=== PATIENT | male | born 1960 | race Caucasian/White ===

== ENCOUNTER 2017-10-17 11:47 | Emergency (ER) | payer MEDICARE, MEDICAID ==
[~2017-10-17] VITALS: Ht 175.3 cm; Wt 72.6 kg
[~2017-10-17 11:47] MED LIST: ADULT LOW DOSE81 MG; AMLODIPINE BESY10 MG PO; ARTIFICIAL TEAR15 M1 OPHTHALMIC; ASPIR 8181 M1 PO; ATENOLOL 100MG100 M2; BENADRYL25 MG PO; BENTYL 20 MG TA20 M1 PO; BENTYL20 MG PO; CARAFATE 1 GM TA1 G1 PO; CARDIZEM60 MG PO; CARVEDILOL12.5 MG PO; CIPROFLOXACIN500 M1 PO; CLEOCIN HCL150 MG PO; COREG6.25 MG PO; DOLOPHINE HCL10 MG PO; DOXYCYCLINE 10100 MG PO; EFFEXOR XR150 MG PO; ENDOCET; FLEXERIL PO; HYDROCHLOROTHIA25 M1 PO; HYDROCHLOROTHIA25 M2 PO; HYDROCODON-ACE1 EAC7 PO; HYDROCODON-ACE1 EAC8 PO; LASIX 20 MG TAB20 MG PO; LEVAQUIN 500 M500 M2 PO; LISINOPRIL10 MG PO; LISINOPRIL20 MG PO; LISINOPRIL40 MG; LISINOPRIL40 MG PO; LOPRESSOR 12.12.5 MG PO; LOPRESSOR25 PO; LUBRICANT EYE D15 ML OPHTHALMIC; METHADONE; METHADONE HCL 110 MG PO; METHADONE HCL5 MG PO; METHADOSE10 MG PO; MIRALAX17 GM PO; MOBIC7.5 M1 PO; MS CONTIN 60 MG60 M1; NAPROXEN 375 M375 M1 PO; NEURONTIN 400400 M1 PO; NEURONTIN 400M400 M2 PO; NICOTINE TRANSD14 M1 TRANSDERM; NORCO 5-325 TA1 EACH PO; NORVASC10 MG PO; OMEPRAZOLE20 M1 PO; OMEPRAZOLE20 M2 PO; OMEPRAZOLE40 MG PO; OXYCODONE HCL 55 MG PO; OXYCODONE HCL5 M1 PO; PEPCID40 MG PO; PERCOCET 10-321 EACH PO; PERCOCET 5-3251 EACH; PERCOCET 5-3251 EACH PO; PERCOCET 7.5-31 EACH PO; PERCOCET PO; PERI-COLACE TA1 EACH PO; POTASSIUM20 PO; PRED FORTE 1% EY5 M1 OPHTHALMIC; PREDNISONE 20 M20 MG PO; PRILOSEC 20 MG20 MG PO; PROTONIX40 M1 PO; PROTONIX40 M2 PO; PROTONIX40 MG PO; REMERON15 MG PO; SENNA-S TABLET1 EACH PO; SIMVASTATIN40 MG PO; SLEEPING PILL; TOPROL XL100 MG PO; TOPROL XL25 MG; TRAMADOL 50 MG50 MG PO; TRAMADOL HCL50 MG PO; TRAZODONE HCL50 MG; TRAZODONE HCL50 MG PO; ULTRAM 50MG TAB50 MG PO; VALPROIC ACID250 MG PO; ZOCOR40 MG PO; ZOFRAN ODT4 MG PO; ZPAK PO
[2017-10-17 12:04] VITALS: BP 176/105
[2017-10-17] MEDS ORDERED: NEURONTIN 300M300 M2 PO (12:06)
[2017-10-17] MEDS ORDERED: HYDROCORTISONE120 M1 TOP (12:19)
== END 2017-10-17 12:25 | disposition home or self-care (01) ==
LOC: M.ERS 11:47
DX: L30.9 Dermatitis, unspecified (principal); F17.220 Nicotine dependence, chewing tobacco, uncomplicated; I10 Essential (primary) hypertension

== ENCOUNTER 2017-11-11 11:28 | Emergency (ER) | payer MEDICARE, MEDICAID ==
[~2017-11-11] VITALS: Ht 182.9 cm; Wt 79.4 kg
[~2017-11-11 11:28] MED LIST changes: +HYDROCORTISONE120 M1 TOP; +NEURONTIN 300M300 M2 PO
[2017-11-11 11:44] LABS: ABSOLUTE BASOPHILS 0.1 thou/uL (0.0-0.2); ABSOLUTE EOSINOPHILS 0.1 thou/uL (0.0-0.7); ABSOLUTE LYMPHOCYTES 1.2 thou/uL (0.8-5.3); ABSOLUTE MONOCYTES 0.4 thou/uL (0.0-1.2); ABSOLUTE NEUTROPHILS 9.7 thou/uL (1.6-8.1); BASOPHILS 0.5 %; HEMATOCRIT 43.5 % (42.0-52.0); HEMOGLOBIN 13.6 gm/dL (14.0-18.0); LYMPHOCYTES 10.8 %; MCH 25.6 pg (26.0-34.0); MCHC 31.2 g/dL (28.0-37.0); MCV 82.1 fL (80.0-100.0); MONOCYTES 3.7 %; NUCLEATED RBCS 0 /100WBC; PLATELET COUNT* 347 thou/uL (150-400); RDW-CV 26.9 % (10.5-14.5); WBC 11.5 thou/uL (4.0-11.0)
[2017-11-11 11:55] LABS: ANION GAP 10 mmol/L (7-16); BUN 10 mg/dL (7-18); CALCIUM 8.5 mg/dL (8.5-10.1); CHLORIDE 109 mmol/L (98-107); CO2 24 mmol/L (21-32); GLUCOSE 104 mg/dL (70-99); POTASSIUM 3.6 mmol/L (3.5-5.1); SODIUM 143 mmol/L (136-145)
[2017-11-11 11:56] LABS: APTT 28.9 Seconds (25.0-31.3); INR 1.1; PROTIME 10.4 Seconds (9.20-11.50)
[2017-11-11 12:20] LABS: ALBUMIN 3.6 g/dL (3.4-5.0); ALKALINE PHOSPHATASE 97 U/L (46-116); LIPASE 103 U/L (73-393); MAGNESIUM 1.6 mg/dL (1.8-2.4); NT-PRO BRAIN NAT PEPTIDE 109 pg/mL (<300); SGOT 15 U/L (15-37); SGPT 22 U/L (30-65); TOTAL BILIRUBIN 0.3 mg/dL (<0.1-1.0); TROPONIN-I LEVEL <0.06 ng/mL (<0.06)
[2017-11-11] MEDS ORDERED: ZOFRAN ODT4 MG SUBLING (12:33)
[2017-11-11 12:36] LABS: ANISOCYTOSIS 3+; OVALOCYTES 1+; TEARDROPS 2+
[2017-11-11 12:40] VITALS: BP 160/109
--- NOTE | 2017-11-11 16:27 | EKG ---
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: : 1960 Requested By: Anthony Borjas Order Number: [id number] MD: Yusuf Cannon Measurements Intervals [place] Rate: 103 P: 33 MD: 160 QRS: 99 QRSD: 171 T: 10 QT: 365 QTc: 478 Interpretive Statements Sinus tachycardia Left atrial enlargement RBBB and LPFB Baseline wander in lead(s) V2 Compared to ECG 05/25/2017 10:42:19 No significant changes Electronically Signed On 11-11-2017 16:27:33 LOADER MACHINE by Yusuf Cannon [email or web address] <ELECTRONICALLY SIGNED> By: Yusuf Cannon MD, [facility] 11/11/17 1627 1133 32 Yusuf Cannon MD, [facility] /EPI
== END 2017-11-11 12:41 | disposition home or self-care (01) ==
LOC: M.ERS 11:28
PROVIDERS: Family Medicine
DX: R07.9 Chest pain, unspecified (principal)

== ENCOUNTER 2017-11-18 13:13 | Inpatient (IN) | payer MEDICARE, MEDICAID ==
[~2017-11-18] VITALS: Ht 182.9 cm; Wt 79.4 kg
--- NOTE | ~2017-11-18 | PROC ---
[address] [address] PROCEDURE REPORT Name: BRADEN HUTCHISON Room: [address] IN M.R.#: [id number] Admission: 11/18/17 Attend Phys: Joshua Quintana Discharge: Date of : 64 Report #: [id number] THIS REPORT FOR: //name// For GI report, please see the Provation report in Perceptive 7 content. By: 0656Medical Records Staff JOSELINE /BRADLEY
[~2017-11-18 13:13] MED LIST changes: +ZOFRAN ODT4 MG SUBLING
[2017-11-18 13:20] VITALS: BP 125/85
[2017-11-18 14:37] LABS: ABSOLUTE BASOPHILS 0.1 thou/uL (0.0-0.2); ABSOLUTE EOSINOPHILS 0.3 thou/uL (0.0-0.7); ABSOLUTE LYMPHOCYTES 2.1 thou/uL (0.8-5.3); ABSOLUTE MONOCYTES 0.6 thou/uL (0.0-1.2); ABSOLUTE NEUTROPHILS 4.8 thou/uL (1.6-8.1); BASOPHILS 0.9 %; HEMATOCRIT 26.3 % (42.0-52.0); HEMOGLOBIN 8.4 gm/dL (14.0-18.0); LYMPHOCYTES 26.6 %; MCH 25.8 pg (26.0-34.0); MCHC 31.9 g/dL (28.0-37.0); MCV 80.8 fL (80.0-100.0); MONOCYTES 7.3 %; MPV 8.2 fl. (7.2-11.1); NUCLEATED RBCS 0 /100WBC; PLATELET COUNT* 320 thou/uL (150-400); POLYS 61.2 %; RBC 3.26 mil/uL (4.50-6.00); RDW-CV 25.1 % (10.5-14.5); WBC 7.8 thou/uL (4.0-11.0)
[2017-11-18 14:42] LABS: ANION GAP 10 mmol/L (7-16); BUN 52 mg/dL (7-18); CHLORIDE 110 mmol/L (98-107); CO2 27 mmol/L (21-32); CREATININE 1.1 mg/dL (0.6-1.3); GLUCOSE 91 mg/dL (70-99); POTASSIUM 3.1 mmol/L (3.5-5.1); SODIUM 147 mmol/L (136-145)
[2017-11-18 14:53] LABS: ALBUMIN 2.9 g/dL (3.4-5.0); ALKALINE PHOSPHATASE 58 U/L (46-116); LIPASE 211 U/L (73-393); NT-PRO BRAIN NAT PEPTIDE 64 pg/mL (<300); SGOT 7 U/L (15-37); SGPT 11 U/L (30-65); TOTAL BILIRUBIN 0.4 mg/dL (<0.1-1.0); TOTAL PROTEIN 5.3 g/dL (6.4-8.2); TROPONIN-I LEVEL <0.06 ng/mL (<0.06)
[2017-11-18 15:10] LABS: MICROCYTES 2+
[2017-11-18 15:13] LABS: ANISOCYTOSIS 2+; HYPOCHROMASIA 2+; LARGE PLATELETS FEW; OVALOCYTES 1+; PLATELET ESTIMATE ADEQUATE
--- NOTE | 2017-11-18 16:34 | EKG ---
[place] [address] ELECTROCARDIOGRAM REPORT Name: BRADEN HUTHCISON Room: [place] [address] ADM IN .R.#: [id number] Admission: 11/18/17 Attend Phys: Joshua Quintana Discharge: Date of : 64 Report #: [id number] THIS REPORT FOR: //name// [facility] ED Test Date: 2017-11-18 Test Time: 13:21:01 Pat Name: BRADEN HUTCHISON Department: Room: [facility] Gender: M Grinder Machine Setter: MS : 1960 Requested By: John Roy Order Number: [id number] Reading MD: Chandler Lopez Measurements Intervals [place] Rate: 113 P: 25 ND: 138 QRS: 83 QRSD: 166 T: 25 QT: 366 QTc: 502 Interpretive Statements Sinus tachycardia Atrial premature complex Right bundle branch block Compared to ECG 11/11/2017 11:33:23 Atrial premature complex(es) now present Atrial abnormality no longer present Left posterior fascicular block no longer present Electronically Signed On 11-18-2017 16:34:01 CONSERVATION TECHNICIAN by Chandler Lopez [email or web address] <ELECTRONICALLY SIGNED> By: Chandler Lopez MD, [facility] 11/18/17 1634 1321 1321 Chandler Lopez MD, [facility] /EPI
[2017-11-18 17:55] VITALS: BP 125/72
[2017-11-18 18:15] VITALS: BP 137/88
[2017-11-18 20:00] VITALS: BP 131/90
[2017-11-19] VITALS (8 sets, daily range): BP systolic 105–130; BP diastolic 61–91
[2017-11-19 05:33] LABS: HEMATOCRIT 21.2 % (42.0-52.0)
[2017-11-19 05:40] LABS: HEMOGLOBIN 6.8 gm/dL (14.0-18.0)
[2017-11-19 22:45] LABS: HEMATOCRIT 22.5 % (42.0-52.0); HEMOGLOBIN 7.2 gm/dL (14.0-18.0)
[2017-11-20] VITALS: BP 124/83
[2017-11-20 04:00] VITALS: BP 125/82
[2017-11-20 06:35] LABS: HEMOGLOBIN 7.2 gm/dL (14.0-18.0)
[2017-11-20 06:38] LABS: HEMATOCRIT 22.8 % (42.0-52.0); HEMOGLOBIN 7.2 gm/dL (14.0-18.0); MCH 26.5 pg (26.0-34.0); MCHC 31.7 g/dL (28.0-37.0); MCV 83.7 fL (80.0-100.0); NUCLEATED RBCS 0 /100WBC; RBC 2.72 mil/uL (4.50-6.00); RDW-CV 23.3 % (10.5-14.5); WBC 3.6 thou/uL (4.0-11.0)
[2017-11-20 06:39] LABS: PLATELET COUNT* 208 thou/uL (150-400)
[2017-11-20 06:45] LABS: CALCIUM 7.6 mg/dL (8.5-10.1); CREATININE 0.7 mg/dL (0.6-1.3)
[2017-11-20 07:06] LABS: ABSOLUTE BASOPHILS 0.2 thou/uL (0.0-0.2); ABSOLUTE EOSINOPHILS 0.4 thou/uL (0.0-0.7); ABSOLUTE LYMPHOCYTES 0.9 thou/uL (0.8-5.3); ABSOLUTE MONOCYTES 0.1 thou/uL (0.0-1.2); ANISOCYTOSIS 2+; METAMYELOCYTES 1 %; PLATELET ESTIMATE ADEQUATE
[2017-11-20 08:07] VITALS: BP 141/80
--- NOTE | 2017-11-20 14:01 | S ---
[address] [address] SURGICAL PATH RPT PROCEDURE Name: HUTCHISONBRADENEW Room: [address] IN .R.#: [id number] Admission: 11/18/17 Date of : 64 Discharge: Report #: [id number] Path Case #: [id number] PATHOLOGY REPORT COLLECTION DATE: 11/19/2017 RECEIVED DATE: 11/19/2017 SUBMITTING PHYS: Dr. Ash Kaufman OTHER PHYS: Dr. 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 (SHAD:carolyne; 11/20/2017) COMMENT: Special stain: H. pylori immuno PATHOLOGIST: Winston Nath M.D. REPORT ELECTRONICALLY SIGNED BY: Winston Nath M.D. DATE/TIME: 11/20/2017 14:01 * * * * * * * * * * * * GROSS PATHOLOGY: Received in formalin labeled "Braden Hutchison and antral biopsy for H. pylori," are two segments of merlos soft tissue measuring 0.4 cm and 0.5 cm in maximum dimension. The specimen is submitted entirely in cassette A1. (SWS; 11/19/2017) CLINICAL HISTORY: For H. pylori INITIAL CPT CODE(S): A; 24068, 65794 Professional services performed by [facility] at [facility], [address] [place] [address]., [place] [address]. Technical services performed by [facility] at [address] [place] [address], [address], [place] [address]. [address] [place] [address] SURGICAL PATH RPT PROCEDURE Name: BRADEN HUTCHISON Room: [address] IN M.R.#: [id number] Admission: 11/18/17 Date of : 64 Discharge: Report #: [id number] Path Case #: [id number] [address] PHONE: [phone] DIRECTOR: Brooks Bautista M.D. * * * END OF REPORT * * *
[2017-11-20 14:56] LABS: HEMATOCRIT 23.8 % (42.0-52.0); HEMOGLOBIN 7.4 gm/dL (14.0-18.0)
[2017-11-20 17:25] VITALS: BP 130/73
[2017-11-20 21:44] LABS: HEMATOCRIT 22.4 % (42.0-52.0); HEMOGLOBIN 7.1 gm/dL (14.0-18.0)
[2017-11-21 00:02] VITALS: BP 129/84
[2017-11-21 04:00] VITALS: BP 110/57
[2017-11-21 06:16] LABS: ABSOLUTE BASOPHILS 0.1 thou/uL (0.0-0.2); ABSOLUTE EOSINOPHILS 0.3 thou/uL (0.0-0.7); ABSOLUTE LYMPHOCYTES 0.7 thou/uL (0.8-5.3); ABSOLUTE MONOCYTES 0.4 thou/uL (0.0-1.2); ABSOLUTE NEUTROPHILS 4.3 thou/uL (1.6-8.1); HEMATOCRIT 23.4 % (42.0-52.0); HEMOGLOBIN 7.4 gm/dL (14.0-18.0); LYMPHOCYTES 11.5 %; MCH 26.1 pg (26.0-34.0); MCHC 31.4 g/dL (28.0-37.0); MCV 83.1 fL (80.0-100.0); MONOCYTES 7.3 %; MPV 7.7 fl. (7.2-11.1); NUCLEATED RBCS 0 /100WBC; PLATELET COUNT* 220 thou/uL (150-400); POLYS 75.2 %; RBC 2.81 mil/uL (4.50-6.00); RDW-CV 22.7 % (10.5-14.5); WBC 5.7 thou/uL (4.0-11.0)
[2017-11-21 06:34] LABS: CALCIUM 7.5 mg/dL (8.5-10.1); CREATININE 0.6 mg/dL (0.6-1.3); POTASSIUM 3.4 mmol/L (3.5-5.1)
[2017-11-21 06:54] LABS: PLATELET ESTIMATE ADEQUATE
[2017-11-21 06:55] LABS: HYPOCHROMASIA 1+; OVALOCYTES 1+; POLYCHROMASIA Occasional
[2017-11-21 06:56] LABS: LARGE PLATELETS OCCASIONAL
[2017-11-21 06:57] LABS: ANISOCYTOSIS 1+; POIKILOCYTOSIS 1+
[2017-11-21 08:15] VITALS: BP 146/90
[2017-11-21 11:29] VITALS: BP 143/77
[2017-11-21 16:03] VITALS: BP 152/85
[2017-11-22 00:23] VITALS: BP 151/76
[2017-11-22 03:32] VITALS: BP 124/91
[2017-11-22 04:35] LABS: HEMATOCRIT 24.4 % (42.0-52.0); HEMOGLOBIN 7.8 gm/dL (14.0-18.0); MCH 26.3 pg (26.0-34.0); MCHC 31.9 g/dL (28.0-37.0); MCV 82.4 fL (80.0-100.0); MPV 8.2 fl. (7.2-11.1); RBC 2.97 mil/uL (4.50-6.00); RDW-CV 21.8 % (10.5-14.5); WBC 6.2 thou/uL (4.0-11.0)
[2017-11-22 04:46] LABS: CALCIUM 7.6 mg/dL (8.5-10.1); CREATININE 0.6 mg/dL (0.6-1.3); MAGNESIUM 1.6 mg/dL (1.8-2.4); POTASSIUM 3.2 mmol/L (3.5-5.1)
[2017-11-22 08:50] VITALS: BP 126/79
[2017-11-22 12:12] VITALS: BP 139/70
[2017-11-22 15:49] VITALS: BP 143/80
[2017-11-22 19:30] VITALS: BP 161/111
[2017-11-23 04:00] VITALS: BP 142/73
[2017-11-23 04:09] LABS: HEMATOCRIT 23.3 % (42.0-52.0); HEMOGLOBIN 7.5 gm/dL (14.0-18.0); MCH 26.8 pg (26.0-34.0); MCHC 32.2 g/dL (28.0-37.0); MCV 83.2 fL (80.0-100.0); MPV 8.1 fl. (7.2-11.1); RBC 2.8 mil/uL (4.50-6.00); RDW-CV 21.7 % (10.5-14.5)
[2017-11-23 04:21] LABS: CALCIUM 7.7 mg/dL (8.5-10.1); CREATININE 0.6 mg/dL (0.6-1.3); MAGNESIUM 1.6 mg/dL (1.8-2.4); POTASSIUM 3.3 mmol/L (3.5-5.1)
[2017-11-23 08:00] VITALS: BP 153/90
[2017-11-23 12:04] VITALS: BP 118/74
[2017-11-23] MEDS ORDERED: IRON325 PO (14:57)
[2017-11-23] MEDS ORDERED: PROTONIX40 M2 PO (15:05)
[2017-11-23] MEDS ORDERED: CARAFATE 1 GM TA1 G1 PO (15:05)
[2017-11-23 15:07] VITALS: BP 118/74
--- NOTE | 2017-12-14 11:02 | CON ---
[address] [address] CONSULTATION Name: HUTCHISONBRADEN STEPHANIE Room: [address] IN M.R.#: [id number] Admission: 11/18/17 Attend Phys: Josuha Quintana Discharge: 11/23/17 Date of : 64 Report #: [id number] THIS REPORT FOR: //name// CC: FAM unknown Dusty Mackey DO DATE OF SERVICE: 11/19/2017 ADDENDUM REFERRING PHYSICIAN: Dusty Mackey D.O. This is an addendum to a job number [id number]. I have seen and examined the patient and he agreed with plans that have been outlined by our nurse practitioner, Rhea Fuentes. We will proceed with upper endoscopy today and make further recommendations thereafter. <ELECTRONICALLY SIGNED> By: Ash Kaufman DO 12/14/17 1102 1656 1920Ash Kaufman DO /nt
--- NOTE | 2017-12-14 11:02 | CON ---
[address] [address] CONSULTATION Name: BRADEN HUTCHISON Room: [address] IN M.R.#: [id number] Admission: 11/18/17 Attend Phys: Joshua Quintana Discharge: 11/23/17 Date of : 64 Report #: [id number] THIS REPORT FOR: //name// CC: FAM unknown Dusty Mackey DICTATED BY: Rhea Fuentes [facility] DATE OF SERVICE: 11/19/2017 REASON FOR CONSULTATION: Epigastric pain and gastrointestinal bleed. HISTORY OF PRESENT ILLNESS: This is a 57-year-old male, who presented to the Emergency Room, which he states he had been here a couple of days before for this epigastric pain. He was given a prescription for some Zantac and sent home. He states his symptoms became worsened at that time and he was also noticing that he was having very black dark stools. In looking at his past medical records as well, last time patient was seen was the end of October for similar symptoms and he was given some ranitidine for that. At that time, his hemoglobin was noted to be 13.6 and on admission this time, was down to 8.4 and then again this morning, he was 6.8 and he received a unit of blood. He states during that time period, when he was last here, his symptoms have continually gotten worse with the pain worsening. He states he has not been able to eat. He has lost about 6 pounds and he has noticed that his stools have been significantly dark. The patient did have EGD and colonoscopy, he thinks about 5 years ago, which he was told he had ulcers in his stomach and he had a colonoscopy, which he thinks was all completely normal, which was done he believes out at [facility] or [facility]. He states prior to all of this, he denied any nausea or vomiting. He does have some dry heaves and he has not noticed any bright red blood in his stools. It has only been black tarry looking. ALLERGIES: No known drug allergies. MEDICATIONS: From home include none at this time. PAST SURGICAL HISTORY: He has had 9 back surgeries, total knee replacement. PAST MEDICAL HISTORY: History of GI bleed, hypertension and chronic back pain. FAMILY HISTORY: Negative. SOCIAL HISTORY: He does chew tobacco. Past history of alcohol use, but none recently, cannot quantify the amount that he has drunk and denies [place] [address] CONSULTATION Name: BRADEN HUTCHISON Room: [address] IN [facility]#: [id number] Admission: 11/18/17 Attend Phys: Joshua Quintana Discharge: 11/23/17 Date of : 64 Report #: [id number] REVIEW OF SYSTEMS: Twelve-point review of systems is essentially negative except what is mentioned in the HPI. PHYSICAL EXAMINATION: VITAL SIGNS: 36.7, pulse 94, respirations 16, blood pressure 117/79. HEART: Regular rate and rhythm. LUNGS: Slightly diminished, but clear. ABDOMEN: Soft, positive bowel sounds in all 4 quadrants with epigastric tenderness noted to palpation. LABORATORY DATA: Hemoglobin on admission was 8.4 two weeks ago, again he was 13.6. He is down to 6.8 and has received a unit of blood. Hematocrit is 21.2, white count is 7.8 and platelet is 320. Sodium 147, potassium 3.1, chloride 110, CO2 27, BUN is 52, creatinine is 1.1, GFR is 69 and glucose is 91. CT of the abdomen and pelvis that was done on the 6th essentially normal except for showing the stomach to be somewhat distended from fluid. Otherwise, negative. IMPRESSION: 1. Gastrointestinal bleed, upper. 2. Epigastric pain. 3. Melenic stool. 4. History of PUD in the past. PLAN: 1. EGD today with Dr. Kaufman. 2. Continue his Protonix drip. 3. Obtain records from [facility]. 4. Labs in a.m., CBC and CMP. 5. Further recommendations to be made once the procedure has been performed. Thank you for allowing us to participate in this patient's care. Please do not hesitate to call with any questions in regard to this consult. ADDENDUM REFERRING PHYSICIAN: Dusty Mackey D.O. I have seen and examined the patient and he agreed with plans that have been outlined by our nurse practitioner, Rhea Fuentes. We will proceed with upper endoscopy today and make further recommendations thereafter. <ELECTRONICALLY SIGNED> By: Ash Kaufman DO 12/14/17 1102 1228 18Ash Kaufman DO /nt
== END 2017-11-23 15:43 | disposition home or self-care (01) | DRG 381 ==
LOC: M.ERS 13:13 → M.2W 15:01 → M.TBA-ER 15:01 → M.2W 18:01 → M.3W 11-21 07:42
PROVIDERS: Family Medicine; Internal Medicine Gastroenterology; Physician Assistant; ADMIT Internal Medicine
PROC: 30233N1 Transfusion of Nonautologous Red Blood Cells into Peripheral Vein, Percutaneous Approach (ICD-10-PCS; principal; 2017-11-19)
PROC: 0DB78ZX Excision of Stomach, Pylorus, Via Natural or Artificial Opening Endoscopic, Diagnostic (ICD-10-PCS; principal; 2017-11-19)
DX: K22.11 Ulcer of esophagus with bleeding (principal); K31.5 Obstruction of duodenum; D62 Acute posthemorrhagic anemia; E44.0 Moderate protein-calorie malnutrition; K26.0 Acute duodenal ulcer with hemorrhage; I10 Essential (primary) hypertension; Z96.651 Presence of right artificial knee joint; D64.9 Anemia, unspecified; K21.0 Gastro-esophageal reflux disease with esophagitis; K44.9 Diaphragmatic hernia without obstruction or gangrene; K25.4 Chronic or unspecified gastric ulcer with hemorrhage; F41.9 Anxiety disorder, unspecified; K22.2 Esophageal obstruction; E87.6 Hypokalemia; E83.42 Hypomagnesemia; K31.84 Gastroparesis; F17.220 Nicotine dependence, chewing tobacco, uncomplicated; Z79.899 Other long term (current) drug therapy; Z28.21 Immunization not carried out because of patient refusal

== ENCOUNTER 2018-01-22 12:44 | Emergency (ER) | payer MEDICARE, MEDICAID ==
[~2018-01-22] VITALS: Ht 182.9 cm; Wt 79.4 kg
[~2018-01-22 12:44] MED LIST changes: +IRON325 PO
[2018-01-22 14:47] LABS: ABSOLUTE BASOPHILS 0.1 thou/uL (0.0-0.2); ABSOLUTE EOSINOPHILS 0.3 thou/uL (0.0-0.7); ABSOLUTE LYMPHOCYTES 1.6 thou/uL (0.8-5.3); ABSOLUTE MONOCYTES 0.6 thou/uL (0.0-1.2); ABSOLUTE NEUTROPHILS 8.2 thou/uL (1.6-8.1); BASOPHILS 1.1 %; HEMOGLOBIN 11.7 gm/dL (14.0-18.0); MCH 23.1 pg (26.0-34.0); MCHC 30.9 g/dL (28.0-37.0); MCV 74.7 fL (80.0-100.0); MONOCYTES 5.1 %; MPV 7.4 fl. (7.2-11.1); NUCLEATED RBCS 0 /100WBC; PLATELET COUNT* 500 thou/uL (150-400); POLYS 75.8 %; RBC 5.08 mil/uL (4.50-6.00); RDW-CV 21.2 % (10.5-14.5); WBC 10.8 thou/uL (4.0-11.0)
[2018-01-22 15:01] LABS: ANION GAP 7 mmol/L (7-16); BUN 9 mg/dL (7-18); CHLORIDE 108 mmol/L (98-107); CO2 26 mmol/L (21-32); CREATININE 0.9 mg/dL (0.6-1.3); GLUCOSE 120 mg/dL (70-99); POTASSIUM 3.6 mmol/L (3.5-5.1); SODIUM 141 mmol/L (136-145)
[2018-01-22 15:08] LABS: ALBUMIN 3.4 g/dL (3.4-5.0); ALKALINE PHOSPHATASE 95 U/L (46-116); LIPASE 133 U/L (73-393); SGOT 19 U/L (15-37); SGPT 33 U/L (30-65); TOTAL BILIRUBIN 0.2 mg/dL (<0.1-1.0); TROPONIN-I LEVEL <0.06 ng/mL (<0.06)
[2018-01-22 15:33] LABS: OVALOCYTES Occasional; PLATELET ESTIMATE INCREASED
[2018-01-22 15:34] LABS: ANISOCYTOSIS 2+; MICROCYTES 1+
[2018-01-22 15:35] LABS: HYPOCHROMASIA Occasional
[2018-01-22] MEDS ORDERED: HYDROCODONE-AP1 EAC6 PO (16:11)
[2018-01-22 16:32] VITALS: BP 151/91
--- NOTE | 2018-01-23 14:27 | EKG ---
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: CORY : 1960 Requested By: Yocasta Sargent Order Number: [id number] MD: Chandler Lopez Measurements Intervals [place] Rate: 88 P: 24 [place]: 162 QRS: 59 QRSD: 171 T: 25 QT: 410 QTc: 496 Interpretive Statements Sinus rhythm Probable left atrial enlargement Right bundle branch block Compared to ECG 11/18/2017 13:21:01 Sinus tachycardia no longer present Atrial premature complex(es) no longer present Electronically Signed On 01-23-2018 14:27:05 CDT by Chandler Lopez [email or web address] <ELECTRONICALLY SIGNED> By: Chandler Lopez MD, FAC 01/23/18 1427 1511 1511 Chandler Lopez MD, [facility] /EPI
== END 2018-01-22 16:33 | disposition home or self-care (01) ==
LOC: M.ERS 12:44
PROVIDERS: Physician Assistant
DX: R10.13 Epigastric pain (principal); I10 Essential (primary) hypertension; G89.29 Other chronic pain; M54.9 Dorsalgia, unspecified; F17.220 Nicotine dependence, chewing tobacco, uncomplicated; Z96.651 Presence of right artificial knee joint

== ENCOUNTER 2018-01-26 15:51 | Emergency (ER) | payer MEDICARE, MEDICAID ==
[~2018-01-26] VITALS: Ht 182.9 cm; Wt 79.4 kg
[~2018-01-26 15:51] MED LIST changes: +HYDROCODONE-AP1 EAC6 PO
[2018-01-26] MEDS ORDERED: LISINOPRIL40 MG PO (16:03)
[2018-01-26] MEDS ORDERED: PROTONIX 20 MG20 M1 PO (16:18)
[2018-01-26] MEDS ORDERED: LISINOPRIL20 MG PO (16:18)
[2018-01-26 17:06] VITALS: BP 140/104
== END 2018-01-26 17:07 | disposition home or self-care (01) ==
LOC: M.ERS 15:51
DX: Z76.0 Encounter for issue of repeat prescription (principal); I10 Essential (primary) hypertension; G89.29 Other chronic pain; M54.9 Dorsalgia, unspecified; R10.9 Unspecified abdominal pain; F17.220 Nicotine dependence, chewing tobacco, uncomplicated

== ENCOUNTER 2018-03-06 13:31 | Emergency (ER) | payer MEDICARE, MEDICAID ==
[~2018-03-06] VITALS: Ht 182.9 cm; Wt 79.4 kg
[~2018-03-06 13:31] MED LIST changes: +PROTONIX 20 MG20 M1 PO
[2018-03-06] MEDS ORDERED: PAIN MEDICATION (13:45)
[2018-03-06] MEDS ORDERED: TRAMADOL 50 MG50 MG PO ×2 (13:46)
[2018-03-06 15:12] LABS: ABSOLUTE BASOPHILS 0.1 thou/uL (0.0-0.2); ABSOLUTE EOSINOPHILS 0.2 thou/uL (0.0-0.7); ABSOLUTE LYMPHOCYTES 1.7 thou/uL (0.8-5.3); ABSOLUTE MONOCYTES 0.6 thou/uL (0.0-1.2); ABSOLUTE NEUTROPHILS 6.8 thou/uL (1.6-8.1); BASOPHILS 0.9 %; EOSINOPHILS 2.4 %; HEMATOCRIT 39.5 % (42.0-52.0); HEMOGLOBIN 12.1 gm/dL (14.0-18.0); LYMPHOCYTES 18.5 %; MCH 22.8 pg (26.0-34.0); MCHC 30.7 g/dL (28.0-37.0); MCV 74.2 fL (80.0-100.0); MONOCYTES 6.1 %; MPV 6.7 fl. (7.2-11.1); NUCLEATED RBCS 0 /100WBC; PLATELET COUNT* 412 thou/uL (150-400); POLYS 72.1 %; RBC 5.32 mil/uL (4.50-6.00); RDW-CV 26.7 % (10.5-14.5); WBC 9.4 thou/uL (4.0-11.0)
[2018-03-06 15:25] LABS: ANION GAP 14 mmol/L (7-16); BUN 12 mg/dL (7-18); CALCIUM 8.6 mg/dL (8.5-10.1); CHLORIDE 101 mmol/L (98-107); CO2 21 mmol/L (21-32); CREATININE 0.9 mg/dL (0.6-1.3); GLUCOSE 85 mg/dL (70-99); POTASSIUM 3.3 mmol/L (3.5-5.1); SODIUM 136 mmol/L (136-145)
[2018-03-06 15:31] LABS: ALBUMIN 3.9 g/dL (3.4-5.0); ALKALINE PHOSPHATASE 76 U/L (46-116); SGOT 21 U/L (15-37); SGPT 26 U/L (30-65); TOTAL BILIRUBIN 0.3 mg/dL (<0.1-1.0); TOTAL PROTEIN 7.3 g/dL (6.4-8.2); TROPONIN-I LEVEL <0.06 ng/mL (<0.06)
[2018-03-06 15:34] LABS: URINE BILIRUBIN NEGATIVE (Negative); URINE BLOOD NEGATIVE (Negative); URINE CLARITY CLEAR; URINE COLOR YELLOW; URINE GLUCOSE-RANDOM NEGATIVE (Negative); URINE KETONES NEGATIVE (Negative); URINE LEUKOCYTES-REFLEX 1+ (Negative); URINE NITRITE-REFLEX NEGATIVE (Negative); URINE PROTEIN NEGATIVE (Negative); URINE UROBILINOGEN 0.2 E.U./dl (0.2-1.0)
[2018-03-06 15:40] LABS: ANISOCYTOSIS 2+; HYPOCHROMASIA 1+; MICROCYTES 1+; OVALOCYTES 1+
[2018-03-06 15:41] LABS: MACROCYTES Occasional; PLATELET ESTIMATE INCREASED
[2018-03-06 15:45] LABS: CASTS None Seen /LPF (None Seen); CRYSTALS None Seen /LPF (None Seen); MUCUS 0-3 Light strn/LPF (None Seen); SQUAMOUS NONE SEEN /LPF (0-3); URINE RBC 0-2 Rare /HPF (0-2); URINE WBC-REFLEX 0-5 Rare /HPF (0-5)
[2018-03-06] MEDS ORDERED: BACTRIM DS TAB1 EACH PO (15:51)
[2018-03-06] MEDS ORDERED: POTASSIUM20 PO (15:57)
[2018-03-06 16:07] VITALS: BP 120/83
[2018-03-07] MEDS ORDERED: PHENERGAN 25 MG25 M1 PO (11:02)
[2018-03-07] MEDS ORDERED: CARAFATE 1 GM TA1 GM PO (11:02)
[2018-03-07] MEDS ORDERED: PEPCID20 MG PO (11:02)
--- NOTE | 2018-03-08 15:47 | EKG ---
[place] [address] ELECTROCARDIOGRAM REPORT Name: FOSTERBRADEN STEPHANIE Room: [facility]#: [id number] Admission: 03/06/18 Attend Phys: Discharge: 03/06/18 Date of : 64 Report #: [id number] THIS REPORT FOR: //name// [facility] ED Test Date: 2018-03-06 Test Time: 15:11:37 Pat Name: BRADEN HUTCHISON Department: Room: Gender: M International Exchange Coordinator: Kary RODRÍGUEZ : 1960 Requested By: Dulce Campbell Order Number: [id number] MD: Yusuf Cannon Measurements Intervals [place] Rate: 99 P: 39 SD: 156 QRS: 114 QRSD: 171 T: 34 QT: 401 QTc: 515 Interpretive Statements Sinus rhythm Probable left atrial enlargement RBBB and LPFB Baseline wander in lead(s) V6 Compared to ECG 01/22/2018 15:11:10 Left posterior fascicular block now present Electronically Signed On 03-08-2018 15:46:52 CDT by Yusuf Cannon [email or web address] <ELECTRONICALLY SIGNED> By: Yusuf Cannon MD, [facility] 03/08/18 1546 1511 1511 Yusuf Cannon MD, [facility] /EPI
== END 2018-03-06 16:07 | disposition home or self-care (01) ==
LOC: M.ERS 13:31
PROVIDERS: Nurse Practitioner Family
DX: N30.90 Cystitis, unspecified without hematuria (principal); R07.89 Other chest pain; R12 Heartburn; I10 Essential (primary) hypertension; G89.29 Other chronic pain; M54.9 Dorsalgia, unspecified; Z77.22 Contact with and (suspected) exposure to environmental tobacco smoke (acute) (chronic)

== ENCOUNTER 2018-03-07 06:28 | Emergency (ER) | payer MEDICARE, MEDICAID ==
[~2018-03-07] VITALS: Ht 182.9 cm; Wt 79.4 kg
[~2018-03-07 06:28] MED LIST changes: +BACTRIM DS TAB1 EACH PO; +PAIN MEDICATION
[2018-03-07 06:53] LABS: ABSOLUTE BASOPHILS 0.1 thou/uL (0.0-0.2); ABSOLUTE EOSINOPHILS 0.2 thou/uL (0.0-0.7); ABSOLUTE LYMPHOCYTES 1.5 thou/uL (0.8-5.3); ABSOLUTE MONOCYTES 0.8 thou/uL (0.0-1.2); ABSOLUTE NEUTROPHILS 8.5 thou/uL (1.6-8.1); EOSINOPHILS 1.7 %; HEMATOCRIT 40.9 % (42.0-52.0); HEMOGLOBIN 12.8 gm/dL (14.0-18.0); LYMPHOCYTES 13.1 %; MCH 22.8 pg (26.0-34.0); MCHC 31.4 g/dL (28.0-37.0); MCV 72.8 fL (80.0-100.0); MONOCYTES 7.3 %; MPV 6.9 fl. (7.2-11.1); NUCLEATED RBCS 0 /100WBC; PLATELET COUNT* 525 thou/uL (150-400); POLYS 76.9 %; RBC 5.62 mil/uL (4.50-6.00); RDW-CV 26.7 % (10.5-14.5); WBC 11.1 thou/uL (4.0-11.0)
[2018-03-07 06:58] LABS: ANION GAP 14 mmol/L (7-16); BUN 22 mg/dL (7-18); CALCIUM 9.3 mg/dL (8.5-10.1); CHLORIDE 100 mmol/L (98-107); CO2 24 mmol/L (21-32); CREATININE 1.1 mg/dL (0.6-1.3); GLUCOSE 111 mg/dL (70-99); POTASSIUM 3.5 mmol/L (3.5-5.1); SODIUM 138 mmol/L (136-145)
[2018-03-07 07:00] LABS: INR 1.1; PROTIME 10.3 Seconds (9.20-11.50)
[2018-03-07 07:05] LABS: ALBUMIN 4.3 g/dL (3.4-5.0); ALKALINE PHOSPHATASE 84 U/L (46-116); LIPASE 143 U/L (73-393); SGOT 19 U/L (15-37); SGPT 26 U/L (30-65); TOTAL BILIRUBIN 0.6 mg/dL (<0.1-1.0); TROPONIN-I LEVEL <0.06 ng/mL (<0.06)
[2018-03-07 07:52] LABS: PLATELET ESTIMATE ADEQUATE
[2018-03-07 07:53] LABS: ANISOCYTOSIS 1+; HYPOCHROMASIA 2+; MICROCYTES 1+; OVALOCYTES 1+
[2018-03-07] MEDS ORDERED: PHENERGAN 25 MG25 M1 PO (11:02)
[2018-03-07] MEDS ORDERED: CARAFATE 1 GM TA1 GM PO (11:02)
[2018-03-07] MEDS ORDERED: PEPCID20 MG PO (11:02)
[2018-03-07 11:20] VITALS: BP 118/72
--- NOTE | 2018-03-08 15:51 | EKG ---
[place] [address] ELECTROCARDIOGRAM REPORT Name: HUTCHISONBRADEN STEPHANIE Room: [facility].#: [id number] Admission: 03/07/18 Attend Phys: Discharge: 03/07/18 Date of : 64 Report #: [id number] THIS REPORT FOR: //name// [facility] ED Test Date: 2018-03-07 Test Time: 06:32:49 Pat Name: BRADEN HUTCHISON Department: Room: Gender: M Manager Risk Management: LEELA : 1960 Requested By: Linda Grullon Order Number: [id number] Reading MD: Yusuf Cannon Measurements Intervals [place] Rate: 108 P: ME: QRS: 156 QRSD: 160 T: 22 QT: 366 QTc: 491 Interpretive Statements Sinus tachycardia RBBB and LPFB Compared to ECG 01/22/2018 15:11:10 Left posterior fascicular block now present Electronically Signed On 03-08-2018 15:50:41 CDT by Yusuf Cannon [email or web address] <ELECTRONICALLY SIGNED> By: Yusuf Cannon MD, [facility] 03/08/18 1550 0632 1 Yusuf Cannon MD, [facility] /EPI
== END 2018-03-07 11:21 | disposition home or self-care (01) ==
LOC: M.ERS 06:28
PROVIDERS: Emergency Medicine
DX: R10.13 Epigastric pain (principal); R11.2 Nausea with vomiting, unspecified; I10 Essential (primary) hypertension; G89.29 Other chronic pain; M54.9 Dorsalgia, unspecified; F17.220 Nicotine dependence, chewing tobacco, uncomplicated; Z96.651 Presence of right artificial knee joint

== ENCOUNTER 2018-03-09 13:51 | Emergency (ER) | payer MEDICARE, MEDICAID ==
[~2018-03-09] VITALS: Ht 185.4 cm; Wt 79.4 kg
[~2018-03-09 13:51] MED LIST changes: +CARAFATE 1 GM TA1 GM PO; +PEPCID20 MG PO; +PHENERGAN 25 MG25 M1 PO
[2018-03-09 14:25] LABS: MCH 23.1 pg (26.0-34.0); MCHC 31.1 g/dL (28.0-37.0); MCV 74.5 fL (80.0-100.0); MPV 7.2 fl. (7.2-11.1); NUCLEATED RBCS 0 /100WBC; RBC 4.56 mil/uL (4.50-6.00); RDW-CV 27.8 % (10.5-14.5); WBC 6.4 thou/uL (4.0-11.0)
[2018-03-09 14:27] LABS: HEMOGLOBIN 10.6 gm/dL (14.0-18.0); PLATELET COUNT* 413 thou/uL (150-400)
[2018-03-09 14:39] LABS: CALCIUM 8.8 mg/dL (8.5-10.1); POTASSIUM 4.5 mmol/L (3.5-5.1)
[2018-03-09 14:44] LABS: ALBUMIN 3.5 g/dL (3.4-5.0); TOTAL BILIRUBIN 0.2 mg/dL (<0.1-1.0); TOTAL PROTEIN 6.4 g/dL (6.4-8.2)
[2018-03-09 15:01] LABS: ABSOLUTE BASOPHILS 0.1 thou/uL (0.0-0.2); ABSOLUTE EOSINOPHILS 0.2 thou/uL (0.0-0.7); ABSOLUTE LYMPHOCYTES 1.9 thou/uL (0.8-5.3); ABSOLUTE MONOCYTES 0.4 thou/uL (0.0-1.2); ABSOLUTE NEUTROPHILS 3.7 thou/uL (1.6-8.1); ATYPICAL LYMPHS 3 %
[2018-03-09 15:02] LABS: URINE BILIRUBIN NEGATIVE (Negative); URINE BLOOD NEGATIVE (Negative); URINE CLARITY CLEAR; URINE COLOR YELLOW; URINE GLUCOSE-RANDOM NEGATIVE (Negative); URINE KETONES NEGATIVE (Negative); URINE LEUKOCYTES-REFLEX NEGATIVE (Negative); URINE NITRITE-REFLEX NEGATIVE (Negative); URINE PROTEIN NEGATIVE (Negative); URINE UROBILINOGEN 0.2 E.U./dl (0.2-1.0)
[2018-03-09 15:02] LABS: ANISOCYTOSIS 1+; HYPOCHROMASIA 1+; MICROCYTES 1+; PLATELET ESTIMATE INCREASED
[2018-03-09 16:28] VITALS: BP 129/99
--- NOTE | 2018-03-10 09:51 | EKG ---
[place] [address] ELECTROCARDIOGRAM REPORT Name: BRADEN HUTCHISON Room: [facility].#: [id number] Admission: 03/09/18 Attend Phys: Discharge: 03/09/18 Date of : 64 Report #: [id number] THIS REPORT FOR: //name// [facility] ED Test Date: 2018-03-09 Test Time: 14:12:40 Pat Name: BRADEN HUTCHISON Department: Room: Gender: M Biological Engineer: Kary YANG : 1960 Requested By: Bryanna Sheilds Order Number: [id number] MD: Justen Lee Measurements Intervals [place] Rate: 87 P: 5 PA: 132 QRS: 89 QRSD: 159 T: 28 QT: 390 QTc: 470 Interpretive Statements Sinus rhythm left posterior fasicular block Right bundle branch block Compared to ECG 03/07/2018 06:32:49 Sinus tachycardia no longer present Electronically Signed On 03-10-2018 9:50:52 CDT by Justen Lee [email or web address] <ELECTRONICALLY SIGNED> By: Justen Lee MD, [facility] 03/10/18 0950 1412 141 Justen Lee MD, [facility] /EPI
[2018-03-10] MEDS ORDERED: BENTYL 20 MG TA20 M1 PO (15:52)
== END 2018-03-09 16:29 | disposition home or self-care (01) ==
LOC: M.ERS 13:51
PROVIDERS: Nurse Practitioner Family
DX: K92.2 Gastrointestinal hemorrhage, unspecified (principal); I10 Essential (primary) hypertension; G89.29 Other chronic pain; M54.9 Dorsalgia, unspecified; F17.220 Nicotine dependence, chewing tobacco, uncomplicated; Z96.651 Presence of right artificial knee joint

== ENCOUNTER 2018-03-10 15:23 | Emergency (ER) | payer MEDICARE, MEDICAID ==
[~2018-03-10] VITALS: Ht 182.9 cm; Wt 79.4 kg
[2018-03-10] MEDS ORDERED: BENTYL 20 MG TA20 M1 PO (15:52)
[2018-03-10 16:44] LABS: ABSOLUTE BASOPHILS 0.1 thou/uL (0.0-0.2); ABSOLUTE EOSINOPHILS 0.2 thou/uL (0.0-0.7); ABSOLUTE LYMPHOCYTES 2.1 thou/uL (0.8-5.3); ABSOLUTE MONOCYTES 0.5 thou/uL (0.0-1.2); ABSOLUTE NEUTROPHILS 5.9 thou/uL (1.6-8.1); EOSINOPHILS 2.7 %; HEMATOCRIT 35.1 % (42.0-52.0); LYMPHOCYTES 24.2 %; MCH 23.1 pg (26.0-34.0); MCHC 31.3 g/dL (28.0-37.0); MCV 73.7 fL (80.0-100.0); MONOCYTES 5.9 %; MPV 7.1 fl. (7.2-11.1); NUCLEATED RBCS 0 /100WBC; PLATELET COUNT* 415 thou/uL (150-400); POLYS 66.2 %; RBC 4.77 mil/uL (4.50-6.00); RDW-CV 27.5 % (10.5-14.5); WBC 8.9 thou/uL (4.0-11.0)
[2018-03-10 16:51] LABS: ANION GAP 8 mmol/L (7-16); BUN 18 mg/dL (7-18); CHLORIDE 103 mmol/L (98-107); CO2 25 mmol/L (21-32); GLUCOSE 97 mg/dL (70-99); POTASSIUM 3.8 mmol/L (3.5-5.1); SODIUM 136 mmol/L (136-145)
[2018-03-10 16:59] LABS: TROPONIN-I LEVEL <0.06 ng/mL (<0.06)
[2018-03-10 18:09] VITALS: BP 123/93
[2018-03-10 18:39] LABS: MICROCYTES 1+; OVALOCYTES Occasional; PLATELET ESTIMATE INCREASED
[2018-03-10 18:40] LABS: ANISOCYTOSIS 3+
--- NOTE | 2018-03-11 10:16 | EKG ---
[place] [address] ELECTROCARDIOGRAM REPORT Name: FOSTERBRADEN BROWN Room: [facility]#: [id number] Admission: 03/10/18 Attend Phys: Discharge: 03/10/18 Date of : 64 Report #: [id number] THIS REPORT FOR: //name// [facility] ED Test Date: 2018-03-10 Test Time: 16:27:20 Pat Name: BRADEN HUTCHISON Department: Room: Gender: M Psychology Intern: BRADLEY : 1960 Requested By: Yocasta Yap Order Number: [id number] MD: Justen Lee Measurements Intervals [place] Rate: 88 P: -35 [place]: 139 QRS: 86 QRSD: 156 T: 29 QT: 383 QTc: 464 Interpretive Statements Sinus rhythm Atrial premature complex Left atrial enlargement Right bundle branch block Baseline wander in lead(s) I,aVL Compared to ECG 03/09/2018 14:12:40 Atrial premature complex(es) now present Left posterior fascicular block no longer present Electronically Signed On 03-11-2018 10:16:38 CDT by Justen Lee [email or web address] <ELECTRONICALLY SIGNED> By: Justen Lee MD, [facility] 03/11/18 1016 1627 1627 Justen Lee MD, [facility] /EPI
== END 2018-03-10 18:10 | disposition home or self-care (01) ==
LOC: M.ERS 15:23
PROVIDERS: Personal Emergency Response Attendant
DX: K27.9 Peptic ulcer, site unspecified, unspecified as acute or chronic, without hemorrhage or perforation (principal); R07.89 Other chest pain; I10 Essential (primary) hypertension; G89.29 Other chronic pain; F17.220 Nicotine dependence, chewing tobacco, uncomplicated; Z96.651 Presence of right artificial knee joint

== ENCOUNTER 2020-09-14 17:49 | Inpatient (IN) | payer MEDICARE ==
[~2020-09-14] VITALS: Ht 182.9 cm; Wt 64.9 kg
[2020-09-14 17:51] VITALS: BP 125/71
[2020-09-14 18:50] LABS: HEMATOCRIT 29.1 % (42.0-52.0); HEMOGLOBIN 7.3 gm/dL (14.0-18.0); MCH 15.6 pg (26.0-34.0); MCHC 25.3 g/dL (28.0-37.0); MCV 61.7 fL (80.0-100.0); MPV 7.6 fl. (7.2-11.1); NUCLEATED RBCS 0 /100WBC; PLATELET COUNT* 660 thou/uL (150-400); RBC 4.71 mil/uL (4.50-6.00); RDW-CV 19.7 % (10.5-14.5); WBC 19.6 thou/uL (4.0-11.0)
[2020-09-14 19:05] LABS: APTT 22.9 Seconds (25.0-31.3); PROTIME 11.1 Seconds (9.20-11.50)
[2020-09-14 19:10] LABS: ALBUMIN 3.1 g/dL (3.4-5.0); CALCIUM 8.6 mg/dL (8.5-10.1); CK-MB MASS 1.8 ng/mL (<0.5-3.6); MAGNESIUM 2.1 mg/dL (1.8-2.4); POTASSIUM 3.3 mmol/L (3.5-5.1); TOTAL BILIRUBIN 0.3 mg/dL (<0.1-1.0); TOTAL PROTEIN 6.9 g/dL (6.4-8.2)
[2020-09-14 19:23] LABS: ABSOLUTE LYMPHOCYTES 1.6 thou/uL (0.8-5.3); ABSOLUTE MONOCYTES 0.2 thou/uL (0.0-1.2); ABSOLUTE NEUTROPHILS 17.8 thou/uL (1.6-8.1); ANISOCYTOSIS 2+; PLATELET ESTIMATE INCREASED
[2020-09-14 19:24] LABS: HYPOCHROMASIA 3+; MICROCYTES 3+; OVALOCYTES 1+; TARGET CELLS 1+
[2020-09-15 02:40] VITALS: BP 96/59
[2020-09-15 05:50] LABS: MCH 15.9 pg (26.0-34.0); MCHC 27.5 g/dL (28.0-37.0); MCV 57.9 fL (80.0-100.0); MPV 8.2 fl. (7.2-11.1); RBC 3.23 mil/uL (4.50-6.00); RDW-CV 19.1 % (10.5-14.5); WBC 7.9 thou/uL (4.0-11.0)
[2020-09-15 05:55] LABS: HEMATOCRIT 18.7 % (42.0-52.0); HEMOGLOBIN 5.1 gm/dL (14.0-18.0)
[2020-09-15 06:08] LABS: CALCIUM 7.4 mg/dL (8.5-10.1); CREATININE 0.7 mg/dL (0.6-1.3)
[2020-09-15 08:00] VITALS: BP 117/74
[2020-09-15 08:24] LABS: % SATURATION 2 % (20-39); IRON 7 ug/dL (50-175)
[2020-09-15 11:30] VITALS: BP 117/68
[2020-09-15 12:34] LABS: ABSOLUTE BASOPHILS 0.1 thou/uL (0.0-0.2); ABSOLUTE EOSINOPHILS 0.2 thou/uL (0.0-0.7); ABSOLUTE LYMPHOCYTES 1.1 thou/uL (0.8-5.3); ABSOLUTE MONOCYTES 0.4 thou/uL (0.0-1.2); ABSOLUTE NEUTROPHILS 5.6 thou/uL (1.6-8.1); BASOPHILS 0.8 %; EOSINOPHILS 2.6 %; LYMPHOCYTES 14.6 %; MCH 15.8 pg (26.0-34.0); MCHC 27.3 g/dL (28.0-37.0); MCV 57.7 fL (80.0-100.0); MONOCYTES 5.8 %; MPV 8.4 fl. (7.2-11.1); NUCLEATED RBCS 0 /100WBC; PLATELET COUNT* 442 thou/uL (150-400); POLYS 76.2 %; RDW-CV 19.7 % (10.5-14.5); WBC 7.3 thou/uL (4.0-11.0)
[2020-09-15 12:37] LABS: HEMATOCRIT 18.5 % (42.0-52.0)
[2020-09-15 12:56] VITALS: BP 111/65; BP 111/67; BP 112/67; BP 114/80
[2020-09-15 14:13] LABS: AMP/METHAMP Negative (Negative); BARBITURATES Negative (Negative); BENZODIAZEPINES Negative (Negative); COCAINE Negative (Negative); METHADONE Negative (Negative); OPIATES POSITIVE (Negative); PCP Negative (Negative); THC Negative (Negative)
--- NOTE | 2020-09-15 14:24 | 2DMMODE ---
[place] [address] 2 D/M-MODE ECHOCARDIOGRAM Name: BRADEN HUTCHISON Room: [address] IN [facility]#: [id number] Admission: 09/14/20 Attend Phys: Braden Morgan, Discharge: Date of : 64 Date of Service: 09/15/20 1424 Report #: [id number] THIS REPORT FOR: cc: FAM - No family physician/PCP FAM - No family physician/PCP Bereket Burris MD [facility] ~ APPROVED REPORT Study performed: 09/15/2020 09:49:22 EXAM: Comprehensive 2D, Doppler, and color-flow Echocardiogram Patient Location: In-Patient Room #: 218 Status: routine BSA: 1.90 HR: 83 bpm BP: 96/59 mmHg Rhythm: NSR Other Information Study Quality: Good Indications Chest Pain 2D Dimensions IVSd: 10.39 (7-11mm) LVOT Diam: 22.38 (18-24mm) LVDd: 45.26 mm PWd: 10.57 (7-11mm) Ascending Ao: 39.30 (22-36mm) LVDs: 26.97 (25-40mm) Aortic Root: 37.43 mm Volumes Left Atrial Volume (Systole) LA ESV Index: 43.60 mL/m2 Aortic Valve AoV Peak Fito.: 1.57 m/s AO Peak Gr.: 9.87 mmHg LVOT Max P.11 mmHg AO Mean Gr.: 5.03 mmHg LVOT Mean P.63 mmHg LVOT Max V: 1.13 m/s AO V2 VTI: 27.52 cm LVOT Mean V: 0.75 m/s DIANA (VTI): 3.59 cm2 LVOT V1 VTI: 25.[place] [address] 2 D/M-MODE ECHOCARDIOGRAM Name: BRADEN HUTCHISON Room: [address] IN .R.#: [id number] Admission: 09/14/20 Attend Phys: Braden Morgan, Discharge: Date of : 64 Date of Service: 09/15/20 1424 Report #: [id number] Mitral Valve E/A Ratio: 0.87 MV Decel. Time: 219.63 ms MV E Max Fito.: 0.76 m/s MV PHT: 63.69 ms MVA (PHT): 3.45 cm2 TDI E/Lateral E': 6.91 E/Medial E': 6.91 Medial E' Fito.: 0.11 m/s Lateral E' Fito.: 0.11 m/s Pulmonary Valve PV Peak Fito.: 1.00 m/s PV Peak Gr.: 3.97 mmHg Tricuspid Valve RAP Estimate: 5.00 mmHg TR Peak Gr.: 20.45 mmHg RVSP: 25.00 mmHg PA Pressure: 25.00 mmHg Left Ventricle The left ventricle is normal size. There is normal LV segmental wall motion. There is normal left ventricular wall thickness. Left ventricular systolic function is normal. The left ventricular ejection fraction is within the normal range. LVEF is 60-65%. Grade I - abnormal relaxation pattern. Right Ventricle The right ventricle is normal size. The right ventricular systolic function is normal. Atria Left atrium is mildly dilated. The right atrium size is normal. Aortic Valve Mild aortic valve sclerosis. No aortic regurgitation is present. There is no aortic valvular stenosis. Mitral Valve The mitral valve is normal in structure. There is no mitral valve regurgitation noted. No evidence of mitral valve stenosis. Tricuspid Valve The tricuspid valve is normal in structure. Trace tricuspid regurgitation. [place] [address] 2 D/M-MODE ECHOCARDIOGRAM Name: HUTCHISONBRADEN Room: [address] IN [facility]#: [id number] Admission: 09/14/20 Attend Phys: Braden Morgan, Discharge: Date of : 64 Date of Service: 09/15/20 1424 Report #: [id number] Pulmonic Valve The pulmonary valve is normal in structure. There is no pulmonic valvular regurgitation. Great Vessels The aortic root is normal in size. IVC is normal in size and collapses >50% with inspiration. Pericardium There is no pericardial effusion. <Conclusion> The left ventricle is normal size. There is normal left ventricular wall thickness. Left ventricular systolic function is normal. The left ventricular ejection fraction is within the normal range. LVEF is 60-65%. Grade I - abnormal relaxation pattern. The right ventricle is normal size. Left atrium is mildly dilated. Mild aortic valve sclerosis. No aortic regurgitation is present. There is no aortic valvular stenosis. The mitral valve is normal in structure. The tricuspid valve is normal in structure. IVC is normal in size and collapses >50% with inspiration. There is no pericardial effusion. There is normal LV segmental wall motion. <ELECTRONICALLY SIGNED> By: Bereket Burris MD, FACC 09/15/20 1424 1424 1424 Bereket Burris MD, [facility]ACC /INF
[2020-09-15 15:54] VITALS: BP 112/67; BP 121/73; BP 124/77; BP 128/80; BP 90/43
--- NOTE | 2020-09-15 17:59 | EKG ---
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: CCD : 1960 Requested By: Timothy Morejon Order Number: [id number] MD: Yusuf Cannon Measurements Intervals [place] Rate: 115 P: -20 WI: 126 QRS: 114 QRSD: 160 T: 8 QT: 369 QTc: 511 Interpretive Statements Sinus tachycardia Probable left atrial enlargement RBBB Compared to ECG 03/10/2018 16:27:20 Sinus rhythm no longer present Atrial premature complex(es) no longer present Electronically Signed On 09-15-2020 17:59:42 CARE ASSISTANT by Yusuf Cannon [email or web address] <ELECTRONICALLY SIGNED> By: Yusuf Cannon MD, FACC 09/15/20 1759 175 175 Yusuf Cannon MD, [facility]AC /EPI
[2020-09-15 20:30] VITALS: BP 138/87
[2020-09-16] VITALS (7 sets, daily range): BP systolic 108–145; BP diastolic 65–90
[2020-09-16 01:40] LABS: HEMOGLOBIN 6.4 gm/dL (14.0-18.0)
[2020-09-16 02:06] LABS: HEPATITIS B SURFACE AG Negative (Negative)
[2020-09-16 11:41] LABS: HEMATOCRIT 27.9 % (42.0-52.0); HEMOGLOBIN 8.2 gm/dL (14.0-18.0)
--- NOTE | 2020-09-16 13:37 | CON ---
[address] [address] CONSULTATION Name: BRADEN HUTCHISON Room: [address] IN M.R.#: [id number] Admission: 09/14/20 Attend Phys: Braden Morgan MD Discharge: Date of : 64 Report #: [id number] THIS REPORT FOR: //name// cc: COURTNEY - No family physician/PCP COURTNEY - No family physician/PCP ~ DATE OF SERVICE: 09/15/2020 Please note at the time of this dictation, the patient was seen and physically examined by myself. REASON FOR CONSULTATION: Hematemesis, acute anemia. HISTORY OF PRESENT ILLNESS: This is a 60-year-old male who presented to the Emergency Room with complaints of left-sided chest pain and dizziness, both of which he said has been ongoing for about 3 days and occurs more with standing. He also has been having some vomiting and he said it was very dark in nature. He has not noticed any darkening of his stool at this time. He states he has been running a fever and he felt like his heart has been racing also. On admission to the ER, his hemoglobin was 7.3. It was noted back in 2018, the patient had a hemoglobin of 11. He did undergo an EGD back in 2018 that showed grade D esophagitis, 2 cm hiatal hernia and he had nonbleeding gastric ulcer that was oozing as well as a duodenal ulcer that was treated with injection and BICAP with some acquired duodenal stenosis that was noted at that particular time. The patient has been very poor to follow up with our office. ALLERGIES: No known drug allergies. MEDICATIONS: From home include lisinopril 40 mg. PAST MEDICAL HISTORY: Hypertension, chronic back pain, history of ulcers. PAST SURGICAL HISTORY: Back surgery, he has got 12 screws, total right knee replacement and ankle surgery. FAMILY HISTORY: Noncontributory for any GI or female cancers. SOCIAL HISTORY: Quit smoking more than a year ago. He continues to drink very nonspecific as far as how much he drinks, he drinks 2 drinks when he drink and this is on at least a weekly if not daily basis, but he is very non-willing to commit. REVIEW OF SYSTEMS: Twelve-point review of systems is essentially negative except what is [place] [address] CONSULTATION Name: BRADEN HUTCHISON Room: [address] IN [facility].#: [id number] Admission: 09/14/20 Attend Phys: Braden Morgan MD Discharge: Date of : 64 Report #: [id number] PHYSICAL EXAMINATION: VITAL SIGNS: Temperature 36.3, pulse 85, respirations 18, blood pressure 96/59. HEART: Regular rate and rhythm. LUNGS: Diminished, but clear. ABDOMEN: Soft, positive bowel sounds in all 4 quadrants with some epigastric tenderness noted to palpation. LABORATORY DATA: Hemoglobin on admission was 7.3, he is now 5.1, white count is 7.9, platelets 440. Iron was 7, TIBC was 359. Ferritin was 5, B12 was 791. BUN was 18, creatinine is 0.7, GFR is 116. Total bilirubin is 0.3, alkaline phosphatase is 158, ALT 42, AST is 24. Chest x-ray was normal. CT scan showed a questionable high-grade proximal small-bowel obstruction with an abrupt transition point in the central upper abdomen, marked esophageal thickening in the distal with a gastrectomy and proximal jejunostomy, mild biliary ductal dilatation. IMPRESSION: 1. Hematemesis. History of grade D esophagitis with gastric and duodenal ulcers back in 2018. 2. Abdominal pain, epigastric. 3. Abnormal CT showing questionable high-grade small-bowel obstruction and esophageal thickening in the esophagus. 4. Elevated alkaline phosphatase. 5. Alcohol use. PLAN: 1. EGD today, later with Dr. Kaufman. 2. Transfuse to keep hemoglobin greater than 7. 3. Further recommendations to be made once the procedure has been performed. Thank you for allowing us to participate in this patient's care. Please do not hesitate to call with any questions in regard to this consult. <ELECTRONICALLY SIGNED> By: Ash Kaufman DO 09/16/20 1337 1148 1225Ash Kaufman DO /nt
[2020-09-17] VITALS: BP 136/84
[2020-09-17 04:00] VITALS: BP 133/86
[2020-09-17 07:40] VITALS: BP 132/83
[2020-09-17 09:07] LABS: ABSOLUTE BASOPHILS 0.1 thou/uL (0.0-0.2); ABSOLUTE EOSINOPHILS 0.3 thou/uL (0.0-0.7); ABSOLUTE LYMPHOCYTES 0.8 thou/uL (0.8-5.3); ABSOLUTE MONOCYTES 0.5 thou/uL (0.0-1.2); ABSOLUTE NEUTROPHILS 5.3 thou/uL (1.6-8.1); BASOPHILS 0.9 %; EOSINOPHILS 4.3 %; HEMATOCRIT 28.9 % (42.0-52.0); HEMOGLOBIN 8.5 gm/dL (14.0-18.0); LYMPHOCYTES 11.5 %; MCH 19.6 pg (26.0-34.0); MCHC 29.3 g/dL (28.0-37.0); MONOCYTES 7.1 %; NUCLEATED RBCS 1 /100WBC; POLYS 76.2 %; RBC 4.32 mil/uL (4.50-6.00); RDW-CV 29.7 % (10.5-14.5)
[2020-09-17 09:11] LABS: PLATELET COUNT* 362 thou/uL (150-400)
[2020-09-17 09:20] LABS: ALBUMIN 2.5 g/dL (3.4-5.0); CREATININE 0.7 mg/dL (0.6-1.3); POTASSIUM 3.4 mmol/L (3.5-5.1); TOTAL BILIRUBIN 0.3 mg/dL (<0.1-1.0); TOTAL PROTEIN 5.9 g/dL (6.4-8.2)
[2020-09-17 13:19] VITALS: BP 164/98
[2020-09-17 16:30] VITALS: BP 139/87
[2020-09-17 20:00] VITALS: BP 146/98
[2020-09-17 21:35] LABS: URINE BILIRUBIN NEGATIVE (Negative); URINE BLOOD NEGATIVE (Negative); URINE CLARITY CLEAR; URINE COLOR STRAW; URINE GLUCOSE-RANDOM NEGATIVE (Negative); URINE KETONES NEGATIVE (Negative); URINE LEUKOCYTES-REFLEX NEGATIVE (Negative); URINE NITRITE-REFLEX NEGATIVE (Negative); URINE PROTEIN NEGATIVE (Negative); URINE UROBILINOGEN 0.2 E.U./dl (0.2-1.0)
[2020-09-18] VITALS (9 sets, daily range): BP systolic 120–150; BP diastolic 67–93
[2020-09-18 05:00] LABS: ABSOLUTE BASOPHILS 0.1 thou/uL (0.0-0.2); ABSOLUTE EOSINOPHILS 0.2 thou/uL (0.0-0.7); ABSOLUTE LYMPHOCYTES 0.7 thou/uL (0.8-5.3); ABSOLUTE MONOCYTES 0.4 thou/uL (0.0-1.2); ABSOLUTE NEUTROPHILS 5.3 thou/uL (1.6-8.1); EOSINOPHILS 3.5 %; HEMATOCRIT 25.4 % (42.0-52.0); HEMOGLOBIN 7.6 gm/dL (14.0-18.0); LYMPHOCYTES 10.6 %; MCH 20.1 pg (26.0-34.0); MCHC 29.8 g/dL (28.0-37.0); MCV 67.5 fL (80.0-100.0); MONOCYTES 5.7 %; MPV 8.1 fl. (7.2-11.1); NUCLEATED RBCS 1 /100WBC; PLATELET COUNT* 330 thou/uL (150-400); POLYS 79.2 %; RBC 3.76 mil/uL (4.50-6.00); RDW-CV 30.5 % (10.5-14.5); WBC 6.7 thou/uL (4.0-11.0)
[2020-09-18 05:26] LABS: CALCIUM 6.8 mg/dL (8.5-10.1); CREATININE 0.5 mg/dL (0.6-1.3)
[2020-09-18 05:51] LABS: POTASSIUM 2.9 mmol/L (3.5-5.1)
[2020-09-18 06:24] LABS: ANISOCYTOSIS 2+; HYPOCHROMASIA 1+; MICROCYTES 2+
[2020-09-19] VITALS: BP 137/68
[2020-09-19 04:00] VITALS: BP 121/86
[2020-09-19 04:19] LABS: HEMATOCRIT 27.6 % (42.0-52.0); HEMOGLOBIN 8.2 gm/dL (14.0-18.0); MCH 20.1 pg (26.0-34.0); MCHC 29.6 g/dL (28.0-37.0); MPV 8.1 fl. (7.2-11.1); RBC 4.06 mil/uL (4.50-6.00); RDW-CV 31.1 % (10.5-14.5); WBC 7.9 thou/uL (4.0-11.0)
[2020-09-19 04:57] LABS: ALBUMIN 2.5 g/dL (3.4-5.0); CALCIUM 7.8 mg/dL (8.5-10.1); CREATININE 0.6 mg/dL (0.6-1.3); MAGNESIUM 1.9 mg/dL (1.8-2.4); TOTAL BILIRUBIN 0.4 mg/dL (<0.1-1.0); TOTAL PROTEIN 5.3 g/dL (6.4-8.2)
[2020-09-19 07:30] VITALS: BP 132/85
--- NOTE | 2020-09-19 07:49 | EKG ---
[place] [address] ELECTROCARDIOGRAM REPORT Name: BRADEN HUTCHISON Room: [address] ADM IN M.R.#: [id number] Admission: 09/14/20 Attend Phys: Braden Morgan, Discharge: Date of : 64 Date of Service: 09/18/20 1735 Report #: [id number] THIS REPORT FOR: //name// [facility] Test Date: 2020-09-18 Test Time: 17:35:33 Pat Name: BRADEN HUTCHISON Department: Room: [address] Gender: M Creative Perfumer: : 1960 Requested By: Mihaela Deleon Order Number: [id number] Phyllis MD: Yusuf Cannon Measurements Intervals [place] Rate: 79 P: 38 NC: 168 QRS: 66 QRSD: 160 T: 39 QT: 436 QTc: 500 Interpretive Statements Sinus rhythm Right bundle branch block Compared to ECG 09/14/2020 17:53:00 Sinus tachycardia no longer present Electronically Signed On 09-19-2020 7:48:48 HOSPITAL ADMISSIONS CLERK by Yusuf Cannon [email or web address] <ELECTRONICALLY SIGNED> By: Yusuf Cannon MD, [facility] 09/19/20 0748 1735 1735 Yusuf Cnanon MD, [facility] /EPI
[2020-09-19 12:30] VITALS: BP 113/71
[2020-09-19 16:00] VITALS: BP 143/87
[2020-09-19 20:00] VITALS: BP 151/92
[2020-09-20] VITALS: BP 136/79
[2020-09-20 04:30] VITALS: BP 143/72
[2020-09-20 08:00] VITALS: BP 131/92
[2020-09-20 09:54] LABS: CALCIUM 7.1 mg/dL (8.5-10.1); CREATININE 0.5 mg/dL (0.6-1.3); POTASSIUM 3.2 mmol/L (3.5-5.1)
[2020-09-20 11:00] VITALS: BP 130/90
[2020-09-20 16:00] VITALS: BP 126/87
--- NOTE | 2020-09-20 17:10 | EKG ---
[place] [address] ELECTROCARDIOGRAM REPORT Name: HUTCHISONBRADEN Room: [address] ADM IN .R.#: [id number] Admission: 09/14/20 Attend Phys: Braden Morgan, Discharge: Date of : 64 Date of Service: 09/20/20 0120 Report #: [id number] THIS REPORT FOR: //name// [facility] Test Date: 2020-09-20 Test Time: 01:20:00 Pat Name: BRADEN HUTCHISON Department: Room: [address] Gender: M Paper Hanger: UNKNOWN : 1960 Requested By: Braden Morgan Order Number: [id number] Phyllis MD: Justen Lee Measurements Intervals [place] Rate: 106 P: 19 OK: 153 QRS: 81 QRSD: 166 T: 37 QT: 380 QTc: 505 Interpretive Statements Sinus tachycardia Probable left atrial enlargement Right bundle branch block Compared to ECG 09/18/2020 17:35:33 Sinus rhythm no longer present Electronically Signed On 09-20-2020 17:10:37 TERRITORY SALES MANAGER by Justen Lee [email or web address] <ELECTRONICALLY SIGNED> By: Justen Lee MD, FACC 09/20/20 1710 0120 0120 Justen Lee MD, [facility] /EPI
[2020-09-20 20:00] VITALS: BP 132/88
[2020-09-21] VITALS (7 sets, daily range): BP systolic 136–162; BP diastolic 68–92
[2020-09-21 06:29] LABS: HEMATOCRIT 27.9 % (42.0-52.0); HEMOGLOBIN 8.1 gm/dL (14.0-18.0); MCH 20.1 pg (26.0-34.0); MCHC 29.2 g/dL (28.0-37.0); MCV 68.7 fL (80.0-100.0); MPV 8.2 fl. (7.2-11.1); RBC 4.06 mil/uL (4.50-6.00); RDW-CV 33.5 % (10.5-14.5); WBC 6.5 thou/uL (4.0-11.0)
[2020-09-21 07:21] LABS: CALCIUM 7.5 mg/dL (8.5-10.1); CREATININE 0.4 mg/dL (0.6-1.3)
[2020-09-21 07:24] LABS: POTASSIUM 2.8 mmol/L (3.5-5.1)
[2020-09-22] VITALS: BP 156/73
[2020-09-22 04:00] VITALS: BP 148/71
[2020-09-22 06:07] LABS: HEMATOCRIT 28.2 % (42.0-52.0); HEMOGLOBIN 8.3 gm/dL (14.0-18.0); MCH 20.4 pg (26.0-34.0); MCHC 29.5 g/dL (28.0-37.0); RBC 4.09 mil/uL (4.50-6.00); RDW-CV 33.5 % (10.5-14.5); WBC 5.7 thou/uL (4.0-11.0)
[2020-09-22 06:26] LABS: CALCIUM 7.8 mg/dL (8.5-10.1); CREATININE 0.5 mg/dL (0.6-1.3); POTASSIUM 3.9 mmol/L (3.5-5.1)
[2020-09-22 07:30] VITALS: BP 107/60
[2020-09-22 12:03] VITALS: BP 152/99
[2020-09-22 16:13] VITALS: BP 129/83
== END 2020-09-22 20:00 | disposition short-term general hospital (02) | DRG 388 ==
LOC: M.ERS 17:49 → M.2W 21:05 → M.TBA-ER 21:05 → M.2W 21:42
PROVIDERS: Emergency Medicine; Family Medicine; Internal Medicine; Internal Medicine Gastroenterology; Personal Emergency Response Attendant; Surgery; ADMIT Internal Medicine; ATTEND Internal Medicine
PROC: 0D9680Z Drainage of Stomach with Drainage Device, Via Natural or Artificial Opening Endoscopic (ICD-10-PCS; principal; 2020-09-15)
PROC: 0D9680Z Drainage of Stomach with Drainage Device, Via Natural or Artificial Opening Endoscopic (ICD-10-PCS; 2020-09-18)
DX: K56.609 Unspecified intestinal obstruction, unspecified as to partial versus complete obstruction (principal); K22.11 Ulcer of esophagus with bleeding; K31.1 Adult hypertrophic pyloric stenosis; D62 Acute posthemorrhagic anemia; R65.10 Systemic inflammatory response syndrome (SIRS) of non-infectious origin without acute organ dysfunction; E44.0 Moderate protein-calorie malnutrition; Z68.1 Body mass index [BMI] 19.9 or less, adult; K21.00 Gastro-esophageal reflux disease with esophagitis, without bleeding; D47.3 Essential (hemorrhagic) thrombocythemia; D72.829 Elevated white blood cell count, unspecified; K28.7 Chronic gastrojejunal ulcer without hemorrhage or perforation; D50.9 Iron deficiency anemia, unspecified; G89.29 Other chronic pain; E87.6 Hypokalemia; M54.9 Dorsalgia, unspecified; I10 Essential (primary) hypertension; Z96.651 Presence of right artificial knee joint; Z79.899 Other long term (current) drug therapy; Z87.891 Personal history of nicotine dependence; Z72.89 Other problems related to lifestyle; Z20.828 Contact with and (suspected) exposure to other viral communicable diseases

== ENCOUNTER 2020-10-05 16:30 | Emergency (ER) | payer MEDICARE ==
[~2020-10-05] VITALS: Ht 182.9 cm; Wt 74.8 kg
[2020-10-05 16:52] LABS: ABSOLUTE BASOPHILS 0.2 thou/uL (0.0-0.2); ABSOLUTE EOSINOPHILS 0.4 thou/uL (0.0-0.7); ABSOLUTE LYMPHOCYTES 1.8 thou/uL (0.8-5.3); ABSOLUTE MONOCYTES 0.7 thou/uL (0.0-1.2); ABSOLUTE NEUTROPHILS 9.8 thou/uL (1.6-8.1); BASOPHILS 1.2 %; EOSINOPHILS 3.1 %; HEMATOCRIT 32.8 % (42.0-52.0); HEMOGLOBIN 9.7 gm/dL (14.0-18.0); LYMPHOCYTES 14.2 %; MCH 20.5 pg (26.0-34.0); MCHC 29.5 g/dL (28.0-37.0); MCV 69.3 fL (80.0-100.0); MONOCYTES 5.2 %; MPV 6.9 fl. (7.2-11.1); NUCLEATED RBCS 0 /100WBC; PLATELET COUNT* 677 thou/uL (150-400); POLYS 76.3 %; RBC 4.73 mil/uL (4.50-6.00); RDW-CV 30.5 % (10.5-14.5); WBC 12.8 thou/uL (4.0-11.0)
[2020-10-05 17:02] LABS: CREATININE 0.9 mg/dL (0.6-1.3); POTASSIUM 3.7 mmol/L (3.5-5.1)
[2020-10-05 17:06] LABS: ALBUMIN 2.8 g/dL (3.4-5.0); TOTAL BILIRUBIN 0.2 mg/dL (<0.1-1.0); TOTAL PROTEIN 6.9 g/dL (6.4-8.2)
[2020-10-05 17:12] LABS: CALCIUM 8.6 mg/dL (8.5-10.1)
[2020-10-05 17:36] LABS: HYPOCHROMASIA 3+; MICROCYTES 3+; OVALOCYTES 2+; PLATELET ESTIMATE INCREASED; SCHISTOCYTES 1+; TARGET CELLS 1+
[2020-10-05 17:38] LABS: GIANT PLATELETS RARE; POLYCHROMASIA 1+
[2020-10-05 18:27] LABS: URINE BILIRUBIN NEGATIVE (Negative); URINE BLOOD NEGATIVE (Negative); URINE CLARITY CLEAR; URINE COLOR YELLOW; URINE GLUCOSE-RANDOM NEGATIVE (Negative); URINE KETONES NEGATIVE (Negative); URINE LEUKOCYTES NEGATIVE (Negative); URINE NITRITE NEGATIVE (Negative); URINE PROTEIN NEGATIVE (Negative); URINE UROBILINOGEN 0.2 E.U./dl (0.2-1.0)
[2020-10-05 18:34] LABS: AMP/METHAMP Negative (Negative); BARBITURATES Negative (Negative); BENZODIAZEPINES Negative (Negative); COCAINE Negative (Negative); METHADONE Negative (Negative); OPIATES Negative (Negative); PCP Negative (Negative); THC Negative (Negative)
[2020-10-05 19:50] VITALS: BP 122/88
--- NOTE | 2020-10-06 12:40 | EKG ---
[place] [address] ELECTROCARDIOGRAM REPORT Name: HUTCHISONBRADEN STEPHANIE Room: [facility]#: [id number] Admission: 10/05/20 Attend Phys: Discharge: 10/05/20 Date of : 64 Date of Service: 10/05/20 1633 Report #: [id number] THIS REPORT FOR: //name// [facility] ED Test Date: 2020-10-05 Test Time: 16:33:11 Pat Name: BRADEN HUTCHISON Department: Room: Gender: Taste Tester: [facility] : 1960 Requested By: Yocasta Yap Order Number: [id number] MD: Yusuf Cannon Measurements Intervals [place] Rate: 113 P: 21 MO: 156 QRS: 115 QRSD: 150 T: 40 QT: 352 QTc: 483 Interpretive Statements Sinus tachycardia Right bundle branch block Compared to ECG 09/20/2020 01:20:00 No significant changes Electronically Signed On 10-06-2020 12:40:29 ESTIMATOR JEWELRY by Yusuf Cannon [email or web address] <ELECTRONICALLY SIGNED> By: Yusuf Cannon MD, [facility] 10/06/20 1240 1633 1633 Yusuf Cannon MD, [facility] /EPI
== END 2020-10-05 19:50 | disposition short-term general hospital (02) ==
LOC: M.ERS 16:30
PROVIDERS: Personal Emergency Response Attendant
DX: K56.609 Unspecified intestinal obstruction, unspecified as to partial versus complete obstruction (principal); Z20.828 Contact with and (suspected) exposure to other viral communicable diseases; I10 Essential (primary) hypertension; G89.29 Other chronic pain; F17.220 Nicotine dependence, chewing tobacco, uncomplicated; Z96.651 Presence of right artificial knee joint